=== PATIENT | male | born 1940 | race Two or more races ===

== ENCOUNTER 2023-01-25 15:28 | Inpatient (IN) | payer OTHER ==
[~2023-01-25] VITALS: Ht 152.4 cm; Wt 63.5 kg
[~2023-01-25 15:28] MED LIST: KEFLEX250 MG PO
[2023-01-25] MEDS ORDERED: SIMVASTATIN10 MG PO (16:26)
[2023-01-25] MEDS ORDERED: LEVOTHYROXINE50 MC1 PO (16:27)
[2023-01-25] MEDS ORDERED: JANUMET XR 1001 EACH PO (16:27)
[2023-01-25 17:35] LABS: HEMATOCRIT 26.9 % (39.0-48.0); MEAN CELL VOLUME 84.9 fL (80.0-100.00); MEAN CORPUSCULAR HGB CONC 34.2 g/dl (32.0-36.0); PLATELET COUNT 443 K/uL (150-450); RED BLOOD COUNT 3.17 M/uL (4.00-6.00); RED CELL DISTRIBUTION WIDTH 14.2 % (11.5-14.5)
[2023-01-25 17:38] LABS: HEMOGLOBIN 9.2 g/dL (13-16.00)
[2023-01-25 17:53] LABS: INR 0.98; PARTIAL THROMBOPLASTIN TIME 25.4 SECONDS (22.0-34.0); PROTHROMBIN TIME 10.3 SECONDS (9.0-11.5)
[2023-01-25 17:54] LABS: CALCIUM 9.2 mg/dL (8.5-10.1); CREATININE SERUM 1.22 mg/dL (0.70-1.30); GFR 56.59; POTASSIUM 5.12 mEq/L (3.5-5.1)
[2023-01-25 19:33] LABS: PH,URINE 5.5 (5.0-8.0); URINE APPEARANCE Clear; URINE BILIRRUBIN Negative (NEGATIVE); URINE BLOOD Small; URINE COLOR Yellow; URINE GLUCOSE Negative (NEGATIVE); URINE LEUKOCYTE Small; URINE NITRATE Negative; URINE PROTEIN Negative (NEGATIVE); URINE UROBILINOGEN 0.2 E.U./dl
[2023-01-25 19:36] LABS: URINE BACTERIA 147.4 uL (0.0-1933); URINE EPITHELIAL CELLS 6.4 uL (0.0-38.8); URINE RBC 67.6 uL (0.0-20.8); URINE WBC 40.9 uL (0.0-23.2)
[2023-01-25 22:42] LABS: ABG PH 7.394 (7.35-7.45); ABG PO2 100.4 mmHg (80-100); ABG pCO2 33.5 mmHg (35-45); BASE EXCESS -3.9 mmol/l; SaO2 97.6 %; allen test SATISFACTORY; o2 21 %; puncture site RADIAL LEFT
[2023-01-26 01:26] LABS: PARTIAL THROMBOPLASTIN TIME 29.5 SECONDS (22.0-34.0); PROTHROMBIN TIME 10.5 SECONDS (9.0-11.5)
[2023-01-27 07:54] LABS: CALCIUM 8.5 mg/dL (8.5-10.1); CREATININE SERUM 0.95 mg/dL (0.70-1.30); GFR 75.53; POTASSIUM 4.48 mEq/L (3.5-5.1)
[2023-01-27 08:12] LABS: HEMATOCRIT 24.5 % (39.0-48.0); MEAN CORPUSCULAR HGB CONC 34.1 g/dl (32.0-36.0); PLATELET COUNT 447 K/uL (150-450); RED BLOOD COUNT 2.88 M/uL (4.00-6.00); RED CELL DISTRIBUTION WIDTH 14.2 % (11.5-14.5)
[2023-01-27 08:16] LABS: HEMOGLOBIN 8.4 g/dL (13-16.00); MEAN CORPUSCULAR HEMOGLOBIN 29.1 pg (27.00-32.0)
[2023-01-27 15:30] LABS: CALCIUM 8.8 mg/dL (8.5-10.1); CHOL HDL RATIO 1.7 (0-5.0); CREATININE SERUM 0.93 mg/dL (0.70-1.30); GFR 77.41; POTASSIUM 4.32 mEq/L (3.5-5.1)
[2023-01-28 00:23] LABS: ob POSITIVE (NEGATIVE)
[2023-01-29 07:02] LABS: ALBUMIN 3.4 gm/dL (3.4-5.0); BILIRUBIN TOTAL 0.21 mg/dL (0.3-1.2); CALCIUM 8.3 mg/dL (8.5-10.1); CREATININE SERUM 0.91 mg/dL (0.70-1.30); GFR 79.37; GLOBULINA 2.9 G/DL (2.4-3.5); POTASSIUM 3.7 mEq/L (3.5-5.1); TOTAL PROTEIN 6.3 gm/dL (6.4-8.2)
[2023-01-29 07:33] LABS: HEMATOCRIT 23.7 % (39.0-48.0); MEAN CELL VOLUME 85.5 fL (80.0-100.00); MEAN CORPUSCULAR HEMOGLOBIN 29.6 pg (27.00-32.0); MEAN CORPUSCULAR HGB CONC 34.5 g/dl (32.0-36.0); PLATELET COUNT 468 K/uL (150-450); RED BLOOD COUNT 2.77 M/uL (4.00-6.00); RED CELL DISTRIBUTION WIDTH 14.1 % (11.5-14.5)
[2023-01-29 07:34] LABS: HEMOGLOBIN 8.2 g/dL (13-16.00)
[2023-01-29 10:54] LABS: FERRITIN 20.7 NG/ML (26-388)
[2023-01-30 10:08] LABS: CA 19-9 5 U/mL (0-35); free psa < 0.02 ng/mL; total psa < 0.1 ng/mL (0.0-4.0)
[2023-01-31 09:20] LABS: HEMATOCRIT 28.6 % (39.0-48.0); MEAN CORPUSCULAR HGB CONC 34.7 g/dl (32.0-36.0); PLATELET COUNT 346 K/uL (150-450); RED BLOOD COUNT 3.49 M/uL (4.00-6.00); RED CELL DISTRIBUTION WIDTH 16.1 % (11.5-14.5)
[2023-01-31 09:23] LABS: HEMOGLOBIN 9.9 g/dL (13-16.00); MEAN CORPUSCULAR HEMOGLOBIN 28.3 pg (27.00-32.0)
== END 2023-01-31 14:50 | disposition home or self-care (01) | DRG 392 ==
LOC: ER 15:28 → MEDI 21:50
PROVIDERS: General Practice; Internal Medicine Hematology & Oncology; ADMIT Specialist; ATTEND Specialist
PROC: BW21YZZ Computerized Tomography (CT Scan) of Abdomen and Pelvis using Other Contrast (ICD-10-PCS; 2023-01-25)
PROC: 0WBH3ZX Excision of Retroperitoneum, Percutaneous Approach, Diagnostic (ICD-10-PCS; principal; 2023-01-29)
PROC: 30233N1 Transfusion of Nonautologous Red Blood Cells into Peripheral Vein, Percutaneous Approach (ICD-10-PCS; 2023-01-29)
DX: K57.90 Diverticulosis of intestine, part unspecified, without perforation or abscess without bleeding (principal); N13.30 Unspecified hydronephrosis; N17.8 Other acute kidney failure; N39.0 Urinary tract infection, site not specified; K62.5 Hemorrhage of anus and rectum; E11.22 Type 2 diabetes mellitus with diabetic chronic kidney disease; I12.9 Hypertensive chronic kidney disease with stage 1 through stage 4 chronic kidney disease, or unspecified chronic kidney disease; N18.9 Chronic kidney disease, unspecified; D64.9 Anemia, unspecified; Z79.4 Long term (current) use of insulin; D72.828 Other elevated white blood cell count; R22.42 Localized swelling, mass and lump, left lower limb; Z85.46 Personal history of malignant neoplasm of prostate; K59.09 Other constipation

== ENCOUNTER 2023-03-20 12:00 | Emergency (ER) | payer OTHER ==
[~2023-03-20] VITALS: Ht 160 cm; Wt 61.2 kg
[~2023-03-20 12:00] MED LIST changes: +JANUMET XR 1001 EACH PO; +LEVOTHYROXINE50 MC1 PO; +SIMVASTATIN10 MG PO
[2023-03-20 16:14] LABS: HEMATOCRIT 31.3 % (39.0-48.0); HEMOGLOBIN 10.6 g/dL (13-16.00); MEAN CELL VOLUME 82.5 fL (80.0-100.00); PLATELET COUNT 393 K/uL (150-450); RED CELL DISTRIBUTION WIDTH 16.4 % (11.5-14.5)
[2023-03-20 16:33] LABS: CALCIUM 10.1 mg/dL (8.5-10.1); CREATININE SERUM 1.33 mg/dL (0.70-1.30); GFR 51.22; POTASSIUM 4.34 mEq/L (3.5-5.1)
[2023-03-20] MEDS ORDERED: ANUSOL-HC30 G2 TOP (17:42)
== END 2023-03-20 18:29 | disposition home or self-care (01) ==
LOC: ER
PROVIDERS: General Practice
DX: K62.5 Hemorrhage of anus and rectum (principal); E03.9 Hypothyroidism, unspecified; M19.90 Unspecified osteoarthritis, unspecified site; E03.8 Other specified hypothyroidism; I10 Essential (primary) hypertension; K64.8 Other hemorrhoids; F41.8 Other specified anxiety disorders

== ENCOUNTER 2023-04-12 06:00 | Day surgery (SDC) | payer OTHER ==
[2023-04-05 12:18] LABS: HEMATOCRIT 31.3 % (39.0-48.0); MEAN CORPUSCULAR HEMOGLOBIN 27.4 pg (27.00-32.0); MEAN CORPUSCULAR HGB CONC 33.8 g/dl (32.0-36.0); PLATELET COUNT 488 K/uL (150-450); RED BLOOD COUNT 3.86 M/uL (4.00-6.00); RED CELL DISTRIBUTION WIDTH 15.9 % (11.5-14.5)
[2023-04-05 12:19] LABS: HEMOGLOBIN 10.6 g/dL (13-16.00)
[2023-04-05 12:29] LABS: URINE APPEARANCE Clear; URINE BILIRRUBIN Negative (NEGATIVE); URINE BLOOD Negative; URINE COLOR Yellow; URINE GLUCOSE Negative (NEGATIVE); URINE LEUKOCYTE Negative; URINE NITRATE Negative; URINE PROTEIN Trace (NEGATIVE); URINE UROBILINOGEN 0.2 E.U./dl
[2023-04-05 12:30] LABS: URINE BACTERIA 6.2 uL (0.0-1933); URINE EPITHELIAL CELLS 1.5 uL (0.0-38.8); URINE WBC 4.4 uL (0.0-23.2)
[2023-04-05 12:33] LABS: URINE RBC 0.5 uL (0.0-20.8)
[2023-04-05 12:46] LABS: INR < 0.93; PARTIAL THROMBOPLASTIN TIME 31.4 SECONDS (22.0-34.0); PROTHROMBIN TIME 9.8 SECONDS (9.0-11.5)
[2023-04-05 12:50] LABS: CALCIUM 9.7 mg/dL (8.5-10.1); CREATININE SERUM 1.22 mg/dL (0.70-1.30); GFR 56.59; POTASSIUM 4.59 mEq/L (3.5-5.1)
[~2023-04-12] VITALS: Ht 160 cm; Wt 63.0 kg
[~2023-04-12 06:00] MED LIST changes: +ANUSOL-HC30 G2 TOP; +ARICEPT5 MG PO; +CHILDREN'S ASPI81 MG PO; +MULTIPLE VITAM1 EAC2 PO; +OMEGA-31000 MG PO
== END 2023-04-12 19:05 | disposition home or self-care (01) ==
LOC: CIR.AMB 06:00
PROVIDERS: ATTEND Urology
DX: C67.9 Malignant neoplasm of bladder, unspecified (principal); N35.919 Unspecified urethral stricture, male, unspecified site

== ENCOUNTER 2023-09-16 13:43 | Inpatient (IN) | payer OTHER ==
[~2023-09-16] VITALS: Ht 170.2 cm; Wt 55.8 kg
--- NOTE | 2023-09-16 14:03 | NUR ---
SE RECIBE PTE ALERTA EN PERSONA DESDE AMBULANCIA, HIPOACTIVO Y CON DEBILIDAD. PTE DE LA DRA.HILDA CARRILLOA. SE MIDEN S/V, SE REALIZA EKG Y SE PRESENTA A . SE COLOCA A PTE EN MONITOR CARDIACO Y OXIMETRIA DE PULSO CONTINUIA.
[2023-09-16] MEDS ORDERED: 0.9 % SODIUM CHLORIDE 1,000 ML IV SCH ×3 (14:45→20:00)
--- NOTE | 2023-09-16 16:03 | NUR ---
SE ORIENTA SOBRE TX MEDICO, REFIERE ENTENDER. SE REALIZAN MUESTRAS DE LABORATORIO BAJO MEDIDAS ASEPTICAS. SE ADMINISTRA MEDICAMENTO STEVEN ORDEN MEDICA. PENDIENTE RE-EVALUACION MEDICA.
[2023-09-16 16:15] LABS: HEMATOCRIT 24.9 % (39.0-48.0); MEAN CELL VOLUME 80.7 fL (80.0-100.00); MEAN CORPUSCULAR HGB CONC 35.3 g/dl (32.0-36.0); PLATELET COUNT 434 K/uL (150-450); RED BLOOD COUNT 3.08 M/uL (4.00-6.00)
[2023-09-16 16:20] LABS: ALBUMIN 2.2 gm/dL (3.4-5.0); BILIRUBIN TOTAL 0.52 mg/dL (0.3-1.2); BILIRUBIN,CONJUGATED 0.34 mg/dL (0.0-0.2); BILIRUBIN,UNCONJUGATED 0.18 mg/dL (0.0-0.6); CALCIUM 7.8 mg/dL (8.5-10.1); CREATININE SERUM 3.29 mg/dL (0.70-1.30); GFR 17.97; GLOBULINA 3.5 G/DL (2.4-3.5); POTASSIUM 4.77 mEq/L (3.5-5.1); TOTAL PROTEIN 5.7 gm/dL (6.4-8.2); TSH 0.951 uIU/mL (0.358-3.74)
[2023-09-16 16:24] LABS: PH,URINE 7.5 (5.0-8.0); URINE APPEARANCE Turbid; URINE BILIRRUBIN Negative (NEGATIVE); URINE BLOOD Large; URINE COLOR Yellow; URINE GLUCOSE Negative (NEGATIVE); URINE LEUKOCYTE Large; URINE NITRATE Negative; URINE UROBILINOGEN 0.2 E.U./dl
[2023-09-16 16:28] LABS: URINE EPITHELIAL CELLS 7.5 uL (0.0-38.8); URINE RBC 683.4 uL (0.0-20.8)
[2023-09-16 17:01] LABS: MEAN CORPUSCULAR HEMOGLOBIN 28.5 pg (27.00-32.0); RED CELL DISTRIBUTION WIDTH 22.2 % (11.5-14.5)
[2023-09-16 17:02] LABS: HEMOGLOBIN 8.8 g/dL (13-16.00)
[2023-09-16 17:11] LABS: URINE BACTERIA > 9821.5 uL (0.0-1933); URINE PROTEIN 300 (NEGATIVE); URINE WBC > 5548.3 uL (0.0-23.2)
[2023-09-16] MEDS ORDERED: CEFTRIAXONE SODIUM 1,000 MG VIAL IV ONE (19:00)
[2023-09-16] MEDS ORDERED: ONDANSETRON HCL 4 MG in 0.9 % SODIUM CHLORIDE 50 ML IV PRN (19:45)
[2023-09-16] MEDS ORDERED: ACETAMINOPHEN 500 MG GEL..CAP PO PRN (19:45)
[2023-09-16] MEDS ORDERED: FAMOTIDINE/PF 20 MG in 0.9 % SODIUM CHLORIDE 8 ML IV PUSH SCH (19:45)
[2023-09-16 23:27] LABS: MAGNESIUM 1.7 mg/dL (1.8-2.4); PHOSPHOROUS 3.7 mg/dL (2.5-4.9)
[2023-09-16 23:28] LABS: INR 1.07; PROTHROMBIN TIME 11.2 SECONDS (9.0-11.5)
[2023-09-16 23:52] LABS: PARTIAL THROMBOPLASTIN TIME 40.2 SECONDS (22.0-34.0)
[2023-09-17 01:26] LABS: ob POSITIVE (NEGATIVE)
[2023-09-17] MEDS ORDERED: LEVOTHYROXINE SODIUM 50 MCG TABLET PO SCH (06:00)
[2023-09-17] MEDS ORDERED: MAGNESIUM SULFATE IN WATER 2 GM/50 ML PIGGYBAG IV NR (06:45)
[2023-09-17] MEDS ORDERED: IRON FUM,PS/FOLIC/BCOMP,C NO.9 1 CAP CAPSULE PO SCH (09:00)
[2023-09-17] MEDS ORDERED: VITAMIN B COMPLEX/LYSINE 1 ML ML PO SCH (09:00)
[2023-09-17] MEDS ORDERED: CEFTRIAXONE SODIUM 2,000 MG in 0.9 % SODIUM CHLORIDE 100 ML IV SCH (09:00)
[2023-09-17] MEDS ORDERED: SIMVASTATIN 10 MG TABLET PO SCH (17:00)
[2023-09-17] MEDS ORDERED: SOD FERRIC GLUC COMPLX/SUCROSE 62.5 MG/5 ML AMPUL IV SCH (17:00)
[2023-09-17] MEDS ORDERED: VITAMIN B COMPLEX 1 EACH PO SCH (17:00)
[2023-09-17] MEDS ORDERED: DONEPEZIL HCL 10 MG TABLET PO SCH (17:00)
[2023-09-17] MEDS ORDERED: Cyanocobalamin/Mecobalamin 1 TAB.SL SL SCH (17:00)
[2023-09-18] MEDS ORDERED: ZINC SULFATE 220 MG CAPSULE PO SCH (12:00)
[2023-09-18] MEDS ORDERED: CHOLECALCIFEROL (VITAMIN D3) 5,000 UNITS TABLET PO SCH (12:00)
[2023-09-18] MEDS ORDERED: ASCORBIC ACID 500 MG TABLET PO SCH (17:00)
[2023-09-18 17:43] LABS: HEMATOCRIT 33.5 % (39.0-48.0); HEMOGLOBIN 11.5 g/dL (13-16.00); MEAN CORPUSCULAR HEMOGLOBIN 28.9 pg (27.00-32.0); MEAN CORPUSCULAR HGB CONC 34.4 g/dl (32.0-36.0); PLATELET COUNT 345 K/uL (150-450); RED BLOOD COUNT 3.99 M/uL (4.00-6.00); RED CELL DISTRIBUTION WIDTH 20.3 % (11.5-14.5)
[2023-09-18] MEDS ORDERED: MELATONIN 5 MG TABLET PO SCH (21:00)
[2023-09-19 07:16] LABS: URINE APPEARANCE Turbid; URINE BILIRRUBIN Negative (NEGATIVE); URINE BLOOD Large; URINE COLOR Yellow; URINE GLUCOSE Negative (NEGATIVE); URINE LEUKOCYTE Large; URINE NITRATE Negative; URINE PROTEIN 30 (NEGATIVE); URINE UROBILINOGEN 0.2 E.U./dl
[2023-09-19 07:19] LABS: URINE BACTERIA 283.4 uL (0.0-1933); URINE EPITHELIAL CELLS 5.2 uL (0.0-38.8); URINE RBC 1704.9 uL (0.0-20.8); URINE WBC 5210.9 uL (0.0-23.2)
[2023-09-19] MEDS ORDERED: SODIUM CL 0.9% 100 ML IV.SOLN IV ONE (08:46)
[2023-09-19 11:06] LABS: D DIMER 5.29 MG/L; PARTIAL THROMBOPLASTIN TIME 37.2 SECONDS (22.0-34.0)
[2023-09-19 11:12] LABS: BILIRUBIN TOTAL 0.45 mg/dL (0.3-1.2); BILIRUBIN,CONJUGATED 0.27 mg/dL (0.0-0.2); BILIRUBIN,UNCONJUGATED 0.18 mg/dL (0.0-0.6); CALCIUM 7.9 mg/dL (8.5-10.1); CREATININE SERUM 1.46 mg/dL (0.70-1.30); GFR 45.89; GLOBULINA 3.2 G/DL (2.4-3.5); MAGNESIUM 1.5 mg/dL (1.8-2.4); POTASSIUM 4.48 mEq/L (3.5-5.1); TOTAL PROTEIN 5.2 gm/dL (6.4-8.2)
[2023-09-19 11:13] LABS: C-REACTIVE PROTEIN 10.4 MG/DL (0.00-0.29); FERRITIN 1510.9 NG/ML (26-388)
[2023-09-19] MEDS ORDERED: MULTIVIT INFUSN,ADULT 4,VIT K 10 ML VIAL IV SCH (12:00)
[2023-09-19 15:25] LABS: HEMATOCRIT 31.4 % (39.0-48.0); HEMOGLOBIN 10.9 g/dL (13-16.00); MEAN CELL VOLUME 83.9 fL (80.0-100.00); MEAN CORPUSCULAR HGB CONC 34.6 g/dl (32.0-36.0); PLATELET COUNT 323 K/uL (150-450); RED BLOOD COUNT 3.74 M/uL (4.00-6.00); RED CELL DISTRIBUTION WIDTH 19.8 % (11.5-14.5)
[2023-09-20] MEDS ORDERED: NITROGLYCERIN IN 5 % DEXTROSE 250 ML IV SCH (20:15)
[2023-09-20] MEDS ORDERED: NITROGLYCERIN IN 5 % DEXTROSE 50 MG/250 ML BOTTLE IV ONE ×2 (20:30→21:07)
[2023-09-20] MEDS ORDERED: SODIUM BICARBONATE 1 MEQ/ML DISP.SYRIN 50ML IV STA (21:59)
[2023-09-20] MEDS ORDERED: SODIUM BICARBONATE 50MEQ/50ML VIAL IV ONE (22:06)
[2023-09-20] MEDS ORDERED: PROPOFOL 10,000 MCG/ML VIAL IV ONE (22:31)
[2023-09-20 22:47] LABS: ABG PH 7.142 (7.35-7.45); ABG PO2 64.1 mmHg (80-100); ABG pCO2 29.5 mmHg (35-45); BASE EXCESS -17.8 mmol/l; BICARBONATE 9.9 mmol/l (23-25); SaO2 81.4 %; Tco2 10.8 mmol/l; allen test SATISFACTORY; o2 100 %; puncture site BRADIAL LEFT
[2023-09-20] MEDS ORDERED: FUROsemide 20 MG/2 ML VIAL IV SCH (23:28)
[2023-09-20] MEDS ORDERED: MIDAZOLAM HCL 50 MG/10 ML VIAL IV SCH (23:30)
[2023-09-20] MEDS ORDERED: DEXAMETHASONE SODIUM PHOSPHATE 4 MG/ML VIAL IV SCH (23:38)
[2023-09-20] MEDS ORDERED: ENOXAPARIN SODIUM 40 MG/0.4 ML SYRINGE SUBCUTANEO SCH (23:39)
[2023-09-20] MEDS ORDERED: REMDESIVIR 100 MG VIAL IV SCH (23:40)
[2023-09-20] MEDS ORDERED: 0.9 % SODIUM CHLORIDE 1,000 ML IV SCH (23:45)
[2023-09-21] MEDS ORDERED: FentaNYL CITRATE/PF 50MCG/ML 2ML VIAL IJ ONE (00:15)
[2023-09-21] MEDS ORDERED: MIDAZOLAM HCL 2 MG/2 ML VIAL IV PUSH ONE (00:15)
[2023-09-21] MEDS ORDERED: PROPOFOL 10,000 MCG/ML VIAL IV ONE (00:15)
[2023-09-21] MEDS ORDERED: CHLORHEXIDINE GLUCONATE 15ML BRUSH KIT MM SCH (01:00)
[2023-09-21 07:53] LABS: ALBUMIN 1.7 gm/dL (3.4-5.0); BILIRUBIN TOTAL 0.23 mg/dL (0.3-1.2); C-REACTIVE PROTEIN 10.6 MG/DL (0.00-0.29); CALCIUM 7.7 mg/dL (8.5-10.1); CREATININE SERUM 1.45 mg/dL (0.70-1.30); GFR 46.25; GLOBULINA 2.7 G/DL (2.4-3.5); MAGNESIUM 1.5 mg/dL (1.8-2.4); PHOSPHOROUS 3.3 mg/dL (2.5-4.9); POTASSIUM 3.96 mEq/L (3.5-5.1); TOTAL PROTEIN 4.4 gm/dL (6.4-8.2)
[2023-09-21 08:26] LABS: HEMOGLOBIN 10.8 g/dL (13-16.00); MEAN CELL VOLUME 82.4 fL (80.0-100.00); MEAN CORPUSCULAR HEMOGLOBIN 28.6 pg (27.00-32.0); MEAN CORPUSCULAR HGB CONC 34.7 g/dl (32.0-36.0); PLATELET COUNT 260 K/uL (150-450); RED BLOOD COUNT 3.76 M/uL (4.00-6.00); RED CELL DISTRIBUTION WIDTH 20.4 % (11.5-14.5)
[2023-09-21] MEDS ORDERED: CARBOXYMETHYLCELLULOSE SODIUM 1 EACH DROPERETTE OP SCH (09:00)
[2023-09-21 10:45] LABS: ABG PH 7.385 (7.35-7.45); ABG PO2 230.5 mmHg (80-100); ABG pCO2 31.2 mmHg (35-45); BASE EXCESS -5.5 mmol/l; BICARBONATE 18.3 mmol/l (23-25); SaO2 99.8 %; Tco2 19.2 mmol/l; o2 100 %
[2023-09-21 10:46] LABS: allen test SATISFACTORY; puncture site RADIAL RIGHT
[2023-09-21] MEDS ORDERED: MAGNESIUM SULFATE/D5W 100 ML IV NR (14:00)
[2023-09-21] MEDS ORDERED: DONEPEZIL HCL 10 MG TABLET PO SCH (17:00)
[2023-09-22] MEDS ORDERED: NOREPINEPHRINE BITARTRATE 4 MG in DEXTROSE 5 % IN WATER 250 ML IV SCH (03:15)
[2023-09-22] MEDS ORDERED: ENOXAPARIN SODIUM 30 MG/0.3 ML SYRINGE SUBCUTANEO SCH (09:00)
[2023-09-22 09:20] LABS: ABG PH 7.395 (7.35-7.45); ABG PO2 101.9 mmHg (80-100); ABG pCO2 25.5 mmHg (35-45); BASE EXCESS -7.7 mmol/l; BICARBONATE 15.2 mmol/l (23-25); SaO2 97.6 %
[2023-09-22 09:21] LABS: allen test SATISFACTORY; o2 40 %; puncture site RADIAL RIGHT
[2023-09-22 10:29] LABS: HEMATOCRIT 29.3 % (39.0-48.0); HEMOGLOBIN 10.2 g/dL (13-16.00); MEAN CELL VOLUME 82.2 fL (80.0-100.00); MEAN CORPUSCULAR HEMOGLOBIN 28.7 pg (27.00-32.0); MEAN CORPUSCULAR HGB CONC 34.9 g/dl (32.0-36.0); PLATELET COUNT 250 K/uL (150-450); RED BLOOD COUNT 3.57 M/uL (4.00-6.00); RED CELL DISTRIBUTION WIDTH 20.9 % (11.5-14.5)
[2023-09-22 11:04] LABS: ALBUMIN 1.7 gm/dL (3.4-5.0); BILIRUBIN TOTAL 0.27 mg/dL (0.3-1.2); CALCIUM 7.3 mg/dL (8.5-10.1); CREATININE SERUM 1.57 mg/dL (0.70-1.30); GFR 42.2; GLOBULINA 2.6 G/DL (2.4-3.5); MAGNESIUM 1.7 mg/dL (1.8-2.4); PHOSPHOROUS 3.3 mg/dL (2.5-4.9); POTASSIUM 4.15 mEq/L (3.5-5.1); TOTAL PROTEIN 4.3 gm/dL (6.4-8.2)
[2023-09-22] MEDS ORDERED: AZITHROMYCIN 500 MG in DEXTROSE 5 % IN WATER 250 ML IV SCH (11:19)
[2023-09-22] MEDS ORDERED: VANCOMYCIN HCL 1,000 MG in 0.9 % SODIUM CHLORIDE 250 ML IV NR (11:45)
[2023-09-23 08:40] LABS: ABG PH 7.415 (7.35-7.45); ABG PO2 88.7 mmHg (80-100); ABG pCO2 23.7 mmHg (35-45); SaO2 96.7 %
[2023-09-23 08:41] LABS: BASE EXCESS -7.5 mmol/l; BICARBONATE 14.9 mmol/l (23-25); Tco2 15.6 mmol/l; allen test SATISFACTORY; o2 30 %; puncture site RADIAL RIGHT
[2023-09-23] MEDS ORDERED: FAMOTIDINE/PF 20 MG/2 ML VIAL IV PUSH SCH (09:14)
[2023-09-23] MEDS ORDERED: CARBOXYMETHYLCELLULOSE SODIUM 1 EACH DROPERETTE OP SCH (09:15)
[2023-09-23] MEDS ORDERED: REMDESIVIR 100 MG VIAL IV NR (10:33)
[2023-09-23 11:00] LABS: HEMATOCRIT 30.4 % (39.0-48.0); HEMOGLOBIN 10.4 g/dL (13-16.00); MEAN CELL VOLUME 83.9 fL (80.0-100.00); MEAN CORPUSCULAR HEMOGLOBIN 28.9 pg (27.00-32.0); MEAN CORPUSCULAR HGB CONC 34.4 g/dl (32.0-36.0); PLATELET COUNT 206 K/uL (150-450); RED BLOOD COUNT 3.62 M/uL (4.00-6.00); RED CELL DISTRIBUTION WIDTH 21.1 % (11.5-14.5)
[2023-09-23 11:16] LABS: ALBUMIN 1.7 gm/dL (3.4-5.0); BILIRUBIN TOTAL 0.2 mg/dL (0.3-1.2); CALCIUM 7.7 mg/dL (8.5-10.1); CREATININE SERUM 1.58 mg/dL (0.70-1.30); GFR 41.89; GLOBULINA 3.1 G/DL (2.4-3.5); MAGNESIUM 1.6 mg/dL (1.8-2.4); PHOSPHOROUS 3.3 mg/dL (2.5-4.9); POTASSIUM 3.84 mEq/L (3.5-5.1); TOTAL PROTEIN 4.8 gm/dL (6.4-8.2)
[2023-09-23] MEDS ORDERED: MEROPENEM 500 MG/VIAL VIAL IV SCH (13:00)
[2023-09-23 15:28] LABS: URINE APPEARANCE Turbid; URINE BILIRRUBIN Negative (NEGATIVE); URINE BLOOD Small; URINE COLOR Red; URINE GLUCOSE Negative (NEGATIVE); URINE LEUKOCYTE Large; URINE NITRATE Positive; URINE PROTEIN 30 (NEGATIVE); URINE UROBILINOGEN 0.2 E.U./dl
[2023-09-23 15:33] LABS: URINE BACTERIA 1044.5 uL (0.0-1933)
[2023-09-23 16:01] LABS: URINE EPITHELIAL CELLS > 201.7 uL (0.0-38.8); URINE RBC > 10558.9 uL (0.0-20.8); URINE WBC > 5548.3 uL (0.0-23.2)
[2023-09-23] MEDS ORDERED: VANCOMYCIN HCL 5 MG/ML REDILUIDO IV SCH (17:00)
[2023-09-24 08:10] LABS: ABG PH 7.301 (7.35-7.45); ABG PO2 92.1 mmHg (80-100); BASE EXCESS -11.6 mmol/l; SaO2 95.7 %; Tco2 13.9 mmol/l
[2023-09-24 08:11] LABS: allen test SATISFACTORY; o2 50 %; puncture site RADIAL RIGHT
[2023-09-24] MEDS ORDERED: FAMOTIDINE/PF 20 MG/2 ML VIAL IV PUSH SCH (09:00)
[2023-09-24 09:12] LABS: ALBUMIN 1.8 gm/dL (3.4-5.0); BILIRUBIN TOTAL 0.36 mg/dL (0.3-1.2); C-REACTIVE PROTEIN 7.18 MG/DL (0.00-0.29); CALCIUM 7.9 mg/dL (8.5-10.1); CREATININE SERUM 1.8 mg/dL (0.70-1.30); GFR 36.04; MAGNESIUM 1.7 mg/dL (1.8-2.4); PHOSPHOROUS 4.8 mg/dL (2.5-4.9); POTASSIUM 4.61 mEq/L (3.5-5.1); TOTAL PROTEIN 4.8 gm/dL (6.4-8.2)
[2023-09-24 10:28] LABS: FERRITIN 21209.4 NG/ML (26-388)
[2023-09-24] MEDS ORDERED: REMDESIVIR 100 MG VIAL IV SCH (14:00)
[2023-09-24] MEDS ORDERED: PANTOPRAZOLE SODIUM 80 MG in 0.9 % SODIUM CHLORIDE 100 ML IV SCH (22:15)
[2023-09-25 08:36] LABS: ABG PH 7.303 (7.35-7.45); ABG PO2 92.7 mmHg (80-100); ABG pCO2 28.8 mmHg (35-45); BASE EXCESS -10.8 mmol/l; SaO2 95.8 %; Tco2 14.8 mmol/l
[2023-09-25 08:37] LABS: allen test SATISFACTORY; o2 40 %; puncture site RADIAL RIGHT
[2023-09-25] MEDS ORDERED: INSULIN LISPRO 1,000 UNIT/10 ML UNITS SUBCUTANEO PRN (10:15)
[2023-09-25] MEDS ORDERED: DEXTROSE 50 % IN WATER 0.5 G/ML VIAL IV PRN (10:15)
[2023-09-26 07:48] LABS: HEMATOCRIT 32.5 % (39.0-48.0); HEMOGLOBIN 11.2 g/dL (13-16.00); MEAN CELL VOLUME 85.1 fL (80.0-100.00); MEAN CORPUSCULAR HEMOGLOBIN 29.3 pg (27.00-32.0); MEAN CORPUSCULAR HGB CONC 34.5 g/dl (32.0-36.0); PLATELET COUNT 141 K/uL (150-450); RED BLOOD COUNT 3.82 M/uL (4.00-6.00); RED CELL DISTRIBUTION WIDTH 21.5 % (11.5-14.5)
[2023-09-26 07:59] LABS: ALBUMIN 1.8 gm/dL (3.4-5.0); BILIRUBIN TOTAL 0.3 mg/dL (0.3-1.2); CALCIUM 7.8 mg/dL (8.5-10.1); CREATININE SERUM 2.02 mg/dL (0.70-1.30); GFR 31.55; GLOBULINA 2.6 G/DL (2.4-3.5); PHOSPHOROUS 4.3 mg/dL (2.5-4.9); POTASSIUM 4.33 mEq/L (3.5-5.1); TOTAL PROTEIN 4.4 gm/dL (6.4-8.2)
[2023-09-26 08:03] LABS: C-REACTIVE PROTEIN 6.63 MG/DL (0.00-0.29)
[2023-09-26 11:01] LABS: ABG PH 7.315 (7.35-7.45); ABG PO2 101.8 mmHg (80-100); ABG pCO2 31.3 mmHg (35-45); BASE EXCESS -9.2 mmol/l; SaO2 96.9 %
[2023-09-26 11:02] LABS: BICARBONATE 15.6 mmol/l (23-25); Tco2 16.6 mmol/l; allen test SATISFACTORY; o2 40 %; puncture site RADIAL RIGHT
[2023-09-26] MEDS ORDERED: ANIDULAFUNGIN 100 MG VIAL IV NR (16:45)
[2023-09-27 06:34] LABS: HEMATOCRIT 31.5 % (39.0-48.0); HEMOGLOBIN 10.9 g/dL (13-16.00); MEAN CELL VOLUME 85.1 fL (80.0-100.00); MEAN CORPUSCULAR HEMOGLOBIN 29.4 pg (27.00-32.0); MEAN CORPUSCULAR HGB CONC 34.5 g/dl (32.0-36.0); RED BLOOD COUNT 3.71 M/uL (4.00-6.00); RED CELL DISTRIBUTION WIDTH 21.5 % (11.5-14.5)
[2023-09-27 06:39] LABS: PLATELET COUNT 123 K/uL (150-450)
[2023-09-27 06:54] LABS: ALBUMIN 1.8 gm/dL (3.4-5.0); BILIRUBIN TOTAL 0.38 mg/dL (0.3-1.2); CALCIUM 8.1 mg/dL (8.5-10.1); GFR 33.45; GLOBULINA 2.5 G/DL (2.4-3.5); PHOSPHOROUS 4.3 mg/dL (2.5-4.9); POTASSIUM 4.44 mEq/L (3.5-5.1); TOTAL PROTEIN 4.3 gm/dL (6.4-8.2)
[2023-09-27 06:55] LABS: CREATININE SERUM 1.92 mg/dL (0.70-1.30)
[2023-09-27 08:37] LABS: ABG PH 7.312 (7.35-7.45); ABG PO2 94.2 mmHg (80-100); ABG pCO2 27.6 mmHg (35-45); BASE EXCESS -10.8 mmol/l; BICARBONATE 13.7 mmol/l (23-25); SaO2 96.1 %; Tco2 14.5 mmol/l
[2023-09-27 08:38] LABS: allen test SATISFACTORY; o2 40 %; puncture site RADIAL RIGHT
[2023-09-27] MEDS ORDERED: ANIDULAFUNGIN 100 MG VIAL IV SCH (12:00)
[2023-09-28 08:21] LABS: MEAN CELL VOLUME 84.9 fL (80.0-100.00); MEAN CORPUSCULAR HEMOGLOBIN 29.3 pg (27.00-32.0); MEAN CORPUSCULAR HGB CONC 34.5 g/dl (32.0-36.0); RED BLOOD COUNT 3.77 M/uL (4.00-6.00); RED CELL DISTRIBUTION WIDTH 22.4 % (11.5-14.5)
[2023-09-28 08:29] LABS: PLATELET COUNT 129 K/uL (150-450)
[2023-09-28 08:54] LABS: ABG PH 7.309 (7.35-7.45); ABG pCO2 28.8 mmHg (35-45)
[2023-09-28 08:55] LABS: ABG PO2 58.8 mmHg (80-100); BASE EXCESS -10.5 mmol/l; BICARBONATE 14.2 mmol/l (23-25); SaO2 86.1 %; allen test SATISFACTORY; o2 40 %; puncture site RADIAL RIGHT
[2023-09-29 06:46] LABS: ALBUMIN 1.8 gm/dL (3.4-5.0); BILIRUBIN TOTAL 0.42 mg/dL (0.3-1.2); CALCIUM 7.8 mg/dL (8.5-10.1); CREATININE SERUM 2.19 mg/dL (0.70-1.30); GFR 28.74; GLOBULINA 2.2 G/DL (2.4-3.5); POTASSIUM 4.52 mEq/L (3.5-5.1)
[2023-09-29 14:15] LABS: ABG PH 7.323 (7.35-7.45); ABG pCO2 27.3 mmHg (35-45)
[2023-09-29 14:16] LABS: ABG PO2 37.2 mmHg (80-100); BASE EXCESS -10.4 mmol/l; BICARBONATE 13.8 mmol/l (23-25); SaO2 63.6 %; Tco2 14.7 mmol/l
[2023-09-29 14:17] LABS: allen test SATISFACTORY; o2 40 %; puncture site RADIAL LEFT
[2023-09-30 07:21] LABS: HEMATOCRIT 30.6 % (39.0-48.0); HEMOGLOBIN 10.3 g/dL (13-16.00); MEAN CELL VOLUME 86.7 fL (80.0-100.00); MEAN CORPUSCULAR HEMOGLOBIN 29.3 pg (27.00-32.0); MEAN CORPUSCULAR HGB CONC 33.8 g/dl (32.0-36.0); RED BLOOD COUNT 3.53 M/uL (4.00-6.00); RED CELL DISTRIBUTION WIDTH 21.8 % (11.5-14.5)
[2023-09-30 07:24] LABS: BILIRUBIN TOTAL 0.57 mg/dL (0.3-1.2); CREATININE SERUM 2.23 mg/dL (0.70-1.30); GFR 28.15; GLOBULINA 2.4 G/DL (2.4-3.5); POTASSIUM 5.08 mEq/L (3.5-5.1); TOTAL PROTEIN 4.4 gm/dL (6.4-8.2)
[2023-09-30 07:32] LABS: PLATELET COUNT 106 K/uL (150-450)
[2023-09-30 08:25] LABS: ABG PH 7.218 (7.35-7.45); ABG PO2 73.1 mmHg (80-100); ABG pCO2 27.5 mmHg (35-45); BASE EXCESS -15.1 mmol/l; BICARBONATE 10.9 mmol/l (23-25); SaO2 89.3 %; Tco2 11.8 mmol/l
[2023-09-30 08:26] LABS: allen test SATISFACTORY; o2 40 %; puncture site RADIAL RIGHT
[2023-09-30] MEDS ORDERED: SODIUM BICARBONATE 100 MEQ in SODIUM CHLORIDE 0.45 % 1,000 ML IV SCH (11:11)
[2023-09-30] MEDS ORDERED: PANTOPRAZOLE SODIUM 40 MG/VIAL VIAL IV PUSH SCH (12:00)
[2023-10-01 11:22] LABS: ABG PH 7.316 (7.35-7.45); ABG PO2 91.2 mmHg (80-100); ABG pCO2 30.6 mmHg (35-45); BASE EXCESS -9.4 mmol/l; BICARBONATE 15.3 mmol/l (23-25); SaO2 95.8 %; Tco2 16.2 mmol/l; o2 50 %
[2023-10-01 11:23] LABS: allen test SATISFACTORY; puncture site RADIAL RIGHT
[2023-10-01] MEDS ORDERED: SODIUM BICARBONATE 50MEQ/50ML VIAL IV NR (12:15)
[2023-10-01 15:19] LABS: CALCIUM 7.8 mg/dL (8.5-10.1); CREATININE SERUM 2.03 mg/dL (0.70-1.30); GFR 31.37; POTASSIUM 4.85 mEq/L (3.5-5.1)
[2023-10-01] MEDS ORDERED: FF) Voriconazole 200 MG VIAL IV SCH (21:00)
[2023-10-01] MEDS ORDERED: VORICONAZOLE IV SCH (21:00)
[2023-10-01] MEDS ORDERED: MEROPENEM 500 MG/VIAL VIAL IV SCH (21:00)
[2023-10-02 07:11] LABS: ALBUMIN 1.8 gm/dL (3.4-5.0); BILIRUBIN TOTAL 0.53 mg/dL (0.3-1.2); CALCIUM 7.7 mg/dL (8.5-10.1); CREATININE SERUM 1.92 mg/dL (0.70-1.30); GFR 33.45; GLOBULINA 2.2 G/DL (2.4-3.5); POTASSIUM 4.69 mEq/L (3.5-5.1)
[2023-10-02 08:31] LABS: ABG PH 7.472 (7.35-7.45); ABG PO2 182.8 mmHg (80-100); ABG pCO2 28.5 mmHg (35-45); BASE EXCESS -1.8 mmol/l; BICARBONATE 20.4 mmol/l (23-25); SaO2 99.7 %; Tco2 21.2 mmol/l
[2023-10-02 08:47] LABS: allen test SATISFACTORY; o2 50 %; puncture site RADIAL RIGHT
[2023-10-02] MEDS ORDERED: LEVOTHYROXINE SODIUM 100 MCG/VIAL VIAL IV SCH (09:00)
[2023-10-02] MEDS ORDERED: SOD FERRIC GLUC COMPLX/SUCROSE 62.5 MG/5 ML AMPUL IV SCH (09:00)
[2023-10-02] MEDS ORDERED: 0.9 % SODIUM CHLORIDE 1,000 ML IV SCH (11:45)
[2023-10-02] MEDS ORDERED: PANTOPRAZOLE SODIUM 80 MG in 0.9 % SODIUM CHLORIDE 100 ML IV SCH (12:00)
[2023-10-02 14:46] LABS: HEMATOCRIT 26.7 % (39.0-48.0); HEMOGLOBIN 9.2 g/dL (13-16.00); MEAN CELL VOLUME 84.8 fL (80.0-100.00); MEAN CORPUSCULAR HEMOGLOBIN 29.2 pg (27.00-32.0); MEAN CORPUSCULAR HGB CONC 34.5 g/dl (32.0-36.0); RED BLOOD COUNT 3.15 M/uL (4.00-6.00)
[2023-10-02 15:02] LABS: PLATELET COUNT 60 K/uL (150-450)
[2023-10-02] MEDS ORDERED: FF) Voriconazole 200 MG VIAL IV SCH (21:00)
[2023-10-03 07:15] LABS: ALBUMIN 1.8 gm/dL (3.4-5.0); BILIRUBIN TOTAL 0.47 mg/dL (0.3-1.2); CALCIUM 7.9 mg/dL (8.5-10.1); CREATININE SERUM 1.76 mg/dL (0.70-1.30); GFR 36.99; GLOBULINA 2.1 G/DL (2.4-3.5); POTASSIUM 4.69 mEq/L (3.5-5.1); TOTAL PROTEIN 3.9 gm/dL (6.4-8.2)
[2023-10-03 07:18] LABS: HEMATOCRIT 26.1 % (39.0-48.0); HEMOGLOBIN 9.2 g/dL (13-16.00); MEAN CELL VOLUME 84.7 fL (80.0-100.00); MEAN CORPUSCULAR HEMOGLOBIN 29.8 pg (27.00-32.0); MEAN CORPUSCULAR HGB CONC 35.1 g/dl (32.0-36.0); RED BLOOD COUNT 3.08 M/uL (4.00-6.00); RED CELL DISTRIBUTION WIDTH 21.8 % (11.5-14.5)
[2023-10-03 07:27] LABS: PLATELET COUNT 56 K/uL (150-450)
[2023-10-03 08:42] LABS: ABG PH 7.419 (7.35-7.45); ABG PO2 108.2 mmHg (80-100); ABG pCO2 29.2 mmHg (35-45); BASE EXCESS -4.5 mmol/l; BICARBONATE 18.5 mmol/l (23-25); SaO2 98.2 %; Tco2 19.4 mmol/l
[2023-10-03 08:43] LABS: allen test SATISFACTORY; o2 40 %; puncture site RADIAL RIGHT
[2023-10-03] MEDS ORDERED: SODIUM CHLORIDE 0.45 % 1,000 ML IV SCH (09:30)
[2023-10-03 11:24] LABS: PLT IN CITRATE 57 K/uL (150-450)
[2023-10-03] MEDS ORDERED: DEXTROSE 50 % IN WATER 0.5 G/ML DISP.SYRIN IV PRN (11:30)
[2023-10-03 12:13] LABS: MANUAL PLATELET COUNT 114
[2023-10-03] MEDS ORDERED: LACTULOSE 20 G/30 ML BLIST.PACK NGT SCH (13:00)
[2023-10-04 07:11] LABS: HEMATOCRIT 26.6 % (39.0-48.0); HEMOGLOBIN 9.2 g/dL (13-16.00); MEAN CELL VOLUME 86.4 fL (80.0-100.00); MEAN CORPUSCULAR HGB CONC 34.7 g/dl (32.0-36.0); RED BLOOD COUNT 3.08 M/uL (4.00-6.00); RED CELL DISTRIBUTION WIDTH 22.1 % (11.5-14.5)
[2023-10-04 07:22] LABS: PLATELET COUNT 49 K/uL (150-450)
[2023-10-04 10:34] LABS: ABG PH 7.363 (7.35-7.45); ABG PO2 117.9 mmHg (80-100); ABG pCO2 29.2 mmHg (35-45); BASE EXCESS -7.6 mmol/l; BICARBONATE 16.2 mmol/l (23-25); SaO2 98.3 %; Tco2 17.1 mmol/l
[2023-10-04 10:35] LABS: allen test SATISFACTORY; o2 100 %; puncture site RADIAL RIGHT
[2023-10-04] MEDS ORDERED: FUROsemide 20 MG/2 ML VIAL IV SCH ×2 (10:45→15:00)
[2023-10-04 11:34] LABS: ob POSITIVE (NEGATIVE)
[2023-10-04 13:01] LABS: BILIRUBIN TOTAL 0.61 mg/dL (0.3-1.2); CALCIUM 7.9 mg/dL (8.5-10.1); CREATININE SERUM 1.72 mg/dL (0.70-1.30); GFR 37.98; GLOBULINA 2.1 G/DL (2.4-3.5); POTASSIUM 4.36 mEq/L (3.5-5.1); TOTAL PROTEIN 4.1 gm/dL (6.4-8.2)
[2023-10-05 09:30] LABS: ABG PH 7.402 (7.35-7.45); ABG pCO2 31.2 mmHg (35-45)
[2023-10-05 09:31] LABS: ABG PO2 131.4 mmHg (80-100); BASE EXCESS -4.6 mmol/l; BICARBONATE 18.9 mmol/l (23-25); SaO2 98.9 %; Tco2 19.9 mmol/l
[2023-10-05 09:32] LABS: allen test SATISFACTORY; o2 40 %; puncture site RADIAL LEFT
[2023-10-05] MEDS ORDERED: AMINO ACIDS/PROTEIN HYDROLYS 30 ML BLIST.PACK NGT SCH (17:00)
[2023-10-06 09:06] LABS: ABG PH 7.377 (7.35-7.45); ABG pCO2 32.2 mmHg (35-45)
[2023-10-06 09:07] LABS: ABG PO2 57.6 mmHg (80-100); BASE EXCESS -5.5 mmol/l; BICARBONATE 18.5 mmol/l (23-25); SaO2 88.3 %; Tco2 19.5 mmol/l; allen test SATISFACTORY; o2 40 %; puncture site RADIAL RIGHT
[2023-10-06 09:31] LABS: HEMATOCRIT 40.4 % (39.0-48.0); HEMOGLOBIN 13.9 g/dL (13-16.00); MEAN CELL VOLUME 86.9 fL (80.0-100.00); MEAN CORPUSCULAR HEMOGLOBIN 29.8 pg (27.00-32.0); MEAN CORPUSCULAR HGB CONC 34.3 g/dl (32.0-36.0); RED BLOOD COUNT 4.65 M/uL (4.00-6.00); RED CELL DISTRIBUTION WIDTH 19.3 % (11.5-14.5)
[2023-10-06 10:18] LABS: PLATELET COUNT 66 K/uL (150-450)
[2023-10-06] MEDS ORDERED: 0.9 % SODIUM CHLORIDE 1,000 ML IV SCH (15:45)
[2023-10-07] MEDS ORDERED: SODIUM CHLORIDE 0.45 % 1,000 ML IV SCH (10:15)
[2023-10-07 10:16] LABS: ABG PH 7.253 (7.35-7.45); ABG PO2 105.2 mmHg (80-100); ABG pCO2 40.8 mmHg (35-45); BASE EXCESS -9.1 mmol/l; BICARBONATE 17.6 mmol/l (23-25); SaO2 96.6 %; Tco2 18.8 mmol/l
[2023-10-07 10:17] LABS: allen test SATISFACTORY; o2 50 %; puncture site RADIAL RIGHT
[2023-10-07 11:18] LABS: URINE APPEARANCE Turbid; URINE BILIRRUBIN Negative (NEGATIVE); URINE BLOOD Large; URINE COLOR Yellow; URINE GLUCOSE Negative (NEGATIVE); URINE LEUKOCYTE Moderate; URINE NITRATE Negative; URINE UROBILINOGEN 0.2 E.U./dl
[2023-10-07 11:22] LABS: URINE EPITHELIAL CELLS 17.1 uL (0.0-38.8); URINE RBC 59.3 uL (0.0-20.8); URINE WBC 2368.3 uL (0.0-23.2)
[2023-10-07 11:36] LABS: URINE PROTEIN 100 (NEGATIVE)
[2023-10-07 12:43] LABS: CALCIUM 7.6 mg/dL (8.5-10.1); CREATININE SERUM 1.74 mg/dL (0.70-1.30); GFR 37.48; POTASSIUM 4.41 mEq/L (3.5-5.1)
[2023-10-07] MEDS ORDERED: PANTOPRAZOLE SODIUM 40 MG TABLET.DR PO SCH (21:00)
[2023-10-08] MEDS ORDERED: LEVOTHYROXINE SODIUM 50 MCG TABLET PO SCH (06:00)
[2023-10-08 07:03] LABS: CALCIUM 7.7 mg/dL (8.5-10.1); CREATININE SERUM 1.75 mg/dL (0.70-1.30); GFR 37.23; POTASSIUM 4.06 mEq/L (3.5-5.1)
[2023-10-08] MEDS ORDERED: CITRIC ACID/SODIUM CITRATE 30 ML BLIST.PACK PO SCH (09:00)
[2023-10-08] MEDS ORDERED: PANTOPRAZOLE SODIUM 40 MG in 0.9 % SODIUM CHLORIDE 100 ML IV SCH (09:00)
[2023-10-08 09:36] LABS: ABG PH 7.381 (7.35-7.45); ABG PO2 83.4 mmHg (80-100); ABG pCO2 26.8 mmHg (35-45); BASE EXCESS -7.8 mmol/l; BICARBONATE 15.5 mmol/l (23-25); SaO2 95.7 %; Tco2 16.3 mmol/l; allen test SATISFACTORY; o2 50 %; puncture site RADIAL LEFT
[2023-10-09 07:04] LABS: CALCIUM 7.7 mg/dL (8.5-10.1); CREATININE SERUM 1.75 mg/dL (0.70-1.30); GFR 37.23; POTASSIUM 3.91 mEq/L (3.5-5.1)
[2023-10-09 10:25] LABS: ABG PH 7.386 (7.35-7.45); ABG pCO2 31.8 mmHg (35-45); SaO2 94.6 %
[2023-10-09 10:26] LABS: BASE EXCESS -5.2 mmol/l; BICARBONATE 18.6 mmol/l (23-25); Tco2 19.6 mmol/l
[2023-10-09 10:27] LABS: HEMATOCRIT 35.5 % (39.0-48.0); HEMOGLOBIN 12.2 g/dL (13-16.00); MEAN CELL VOLUME 86.7 fL (80.0-100.00); MEAN CORPUSCULAR HEMOGLOBIN 29.8 pg (27.00-32.0); MEAN CORPUSCULAR HGB CONC 34.4 g/dl (32.0-36.0); RED BLOOD COUNT 4.09 M/uL (4.00-6.00); RED CELL DISTRIBUTION WIDTH 19.8 % (11.5-14.5)
[2023-10-09 10:27] LABS: allen test SATISFACTORY; o2 21 %; puncture site RADIAL RIGHT
[2023-10-09 10:28] LABS: PLATELET COUNT 32 K/uL (150-450)
[2023-10-09] MEDS ORDERED: FUROsemide 20 MG/2 ML VIAL IV SCH (11:15)
[2023-10-09 13:21] LABS: PROTHROMBIN TIME 12.4 SECONDS (9.0-11.5)
[2023-10-09 13:35] LABS: PARTIAL THROMBOPLASTIN TIME 50.2 SECONDS (22.0-34.0)
[2023-10-09 13:54] LABS: COL EPI 154 SECONDS (82-175)
[2023-10-09] MEDS ORDERED: LANSOPRAZOLE 30 MG CAPSULE NGT SCH (21:00)
[2023-10-10 01:59] LABS: HEMATOCRIT 32.6 % (39.0-48.0); MEAN CELL VOLUME 86.5 fL (80.0-100.00); MEAN CORPUSCULAR HEMOGLOBIN 29.7 pg (27.00-32.0); MEAN CORPUSCULAR HGB CONC 34.4 g/dl (32.0-36.0); RED BLOOD COUNT 3.76 M/uL (4.00-6.00); RED CELL DISTRIBUTION WIDTH 20.2 % (11.5-14.5)
[2023-10-10 02:36] LABS: ALBUMIN 1.7 gm/dL (3.4-5.0); BILIRUBIN TOTAL 0.63 mg/dL (0.3-1.2); CALCIUM 7.7 mg/dL (8.5-10.1); CREATININE SERUM 1.79 mg/dL (0.70-1.30); D DIMER 6.59 MG/L; GFR 36.27; GLOBULINA 2.2 G/DL (2.4-3.5); INR 1.2; POTASSIUM 3.62 mEq/L (3.5-5.1); PROTHROMBIN TIME 12.4 SECONDS (9.0-11.5); TOTAL PROTEIN 3.9 gm/dL (6.4-8.2)
[2023-10-10 02:53] LABS: HEMOGLOBIN 11.2 g/dL (13-16.00)
[2023-10-10 02:55] LABS: PLATELET COUNT 68 K/uL (150-450)
[2023-10-10] MEDS ORDERED: LEVALBUTEROL HCL 0.63 MG/3 ML SOLUTION IH SCH (08:15)
[2023-10-10] MEDS ORDERED: PANTOPRAZOLE SODIUM 80 MG in 0.9 % SODIUM CHLORIDE 100 ML IV SCH (08:30)
[2023-10-10 08:49] LABS: ABG pCO2 30.4 mmHg (35-45)
[2023-10-10 08:51] LABS: ABG PO2 58.2 mmHg (80-100); BICARBONATE 18.4 mmol/l (23-25); SaO2 89.4 %; Tco2 19.4 mmol/l
[2023-10-10 08:52] LABS: allen test SATISFACTORY; o2 50 %; puncture site RADIAL RIGHT
[2023-10-10] MEDS ORDERED: DEXTROSE 5 % IN WATER 1,000 ML IV SCH (10:15)
[2023-10-10] MEDS ORDERED: FUROsemide 20 MG/2 ML VIAL IV PRN (10:15)
[2023-10-10] MEDS ORDERED: HYDROCORTISONE SODIUM SUCC/PF 100 MG VIAL IV STA (10:57)
[2023-10-10] MEDS ORDERED: HYDROCORTISONE SODIUM SUCC/PF 50 MG/ML ML IV SCH (12:00)
[2023-10-10] MEDS ORDERED: VANCOMYCIN HCL 1,000 MG VIAL IV NR (17:00)
[2023-10-10] MEDS ORDERED: AMINO ACIDS 4.25 %/DEXTROSE 5% 1,000 ML PERIFERAL SCH (17:00)
[2023-10-10] MEDS ORDERED: MEROPENEM 500 MG/VIAL VIAL IV SCH (17:00)
[2023-10-10] MEDS ORDERED: FUROsemide 20 MG/2 ML VIAL IV SCH (17:00)
[2023-10-10] MEDS ORDERED: NOREPINEPHRINE BITARTRATE 1 MG/ML AMPUL IV ONE (20:33)
[2023-10-10] MEDS ORDERED: NOREPINEPHRINE BITARTRATE 8 MG in DEXTROSE 5 % IN WATER 250 ML IV SCH (20:45)
[2023-10-11] MEDS ORDERED: PHENYLEPHRINE HCL 20 MG in 0.9 % SODIUM CHLORIDE 250 ML IV SCH (07:30)
[2023-10-11] MEDS ORDERED: DOPamine HCL IN DEXTROSE 5 % 250 ML IV SCH (09:30)
[2023-10-11] MEDS ORDERED: SODIUM BICARBONATE 200 MEQ in DEXTROSE 5 % IN WATER 1,000 ML IV SCH (09:30)
[2023-10-11 09:59] LABS: ABG PH 7.222 (7.35-7.45); ABG PO2 72.5 mmHg (80-100); ABG pCO2 42.8 mmHg (35-45); BASE EXCESS -10.1 mmol/l; BICARBONATE 17.2 mmol/l (23-25); SaO2 89.6 %; Tco2 18.5 mmol/l; allen test SATISFACTORY; o2 80 %; puncture site RADIAL RIGHT
[2023-10-11] MEDS ORDERED: DEXTROSE 5%-WATER 1,000ML IV.SOLN ONE ×3 (11:46→11:47)
[2023-10-11] MEDS ORDERED: SODIUM BICARBONATE 50MEQ/50ML VIAL IV ONE (11:48)
[2023-10-11] MEDS ORDERED: TOBRAMYCIN SULFATE 40 MG/ML VIAL IV SCH (17:00)
[2023-10-12] MEDS ORDERED: LEVOTHYROXINE SODIUM 100 MCG/VIAL VIAL IV SCH (09:00)
== END 2023-10-11 15:05 | disposition expired | DRG 207 ==
LOC: ER 13:43 → MEDJ 21:04 → ICU 09-21 06:11
PROVIDERS: General Practice; Internal Medicine; Internal Medicine Critical Care Medicine; Internal Medicine Hematology & Oncology; Internal Medicine Infectious Disease; Internal Medicine Pulmonary Disease; ADMIT Internal Medicine; ATTEND Internal Medicine
PROC: B246ZZZ Ultrasonography of Right and Left Heart (ICD-10-PCS; 2023-09-16)
PROC: 8E0ZXY6 Isolation (ICD-10-PCS; 2023-09-17)
PROC: 4A12X4Z Monitoring of Cardiac Electrical Activity, External Approach (ICD-10-PCS; 2023-09-17)
PROC: 30233N1 Transfusion of Nonautologous Red Blood Cells into Peripheral Vein, Percutaneous Approach (ICD-10-PCS; 2023-09-17)
PROC: 5A1955Z Respiratory Ventilation, Greater than 96 Consecutive Hours (ICD-10-PCS; principal; 2023-09-20)
PROC: 0BH17EZ Insertion of Endotracheal Airway into Trachea, Via Natural or Artificial Opening (ICD-10-PCS; 2023-09-20)
PROC: XW033E5 Introduction of Remdesivir Anti-infective into Peripheral Vein, Percutaneous Approach, New Technology Group 5 (ICD-10-PCS; 2023-09-20)
PROC: 0DH67UZ Insertion of Feeding Device into Stomach, Via Natural or Artificial Opening (ICD-10-PCS; 2023-09-21)
PROC: 02HV33Z Insertion of Infusion Device into Superior Vena Cava, Percutaneous Approach (ICD-10-PCS; 2023-09-21)
PROC: B020ZZZ Computerized Tomography (CT Scan) of Brain (ICD-10-PCS; 2023-09-22)
PROC: 0T9B70Z Drainage of Bladder with Drainage Device, Via Natural or Artificial Opening (ICD-10-PCS; 2023-09-22)
PROC: B246ZZZ Ultrasonography of Right and Left Heart (ICD-10-PCS; 2023-09-23)
PROC: BW28ZZZ Computerized Tomography (CT Scan) of Head (ICD-10-PCS; 2023-09-25)
PROC: 30233R1 Transfusion of Nonautologous Platelets into Peripheral Vein, Percutaneous Approach (ICD-10-PCS; 2023-10-05)
PROC: 3E0336Z Introduction of Nutritional Substance into Peripheral Vein, Percutaneous Approach (ICD-10-PCS; 2023-10-10)
DX: U07.1 COVID-19 (principal); A41.9 Sepsis, unspecified organism; J12.82 Pneumonia due to coronavirus disease 2019; J15.61 Pneumonia due to Acinetobacter baumannii; J15.8 Pneumonia due to other specified bacteria; I21.A1 Myocardial infarction type 2; J96.01 Acute respiratory failure with hypoxia; I50.23 Acute on chronic systolic (congestive) heart failure; R65.21 Severe sepsis with septic shock; D65 Disseminated intravascular coagulation [defibrination syndrome]; N17.9 Acute kidney failure, unspecified; N39.0 Urinary tract infection, site not specified; C75.0 Malignant neoplasm of parathyroid gland; C66.1 Malignant neoplasm of right ureter; R64 Cachexia; I13.0 Hypertensive heart and chronic kidney disease with heart failure and stage 1 through stage 4 chronic kidney disease, or unspecified chronic kidney disease; G93.49 Other encephalopathy; E87.3 Alkalosis; Q79.60 Ehlers-Danlos syndrome, unspecified; C85.86 Other specified types of non-Hodgkin lymphoma, intrapelvic lymph nodes; D84.89 Other immunodeficiencies; I24.9 Acute ischemic heart disease, unspecified; K92.2 Gastrointestinal hemorrhage, unspecified; E27.49 Other adrenocortical insufficiency; Z68.1 Body mass index [BMI] 19.9 or less, adult; C61 Malignant neoplasm of prostate; C67.9 Malignant neoplasm of bladder, unspecified; E86.0 Dehydration; D64.89 Other specified anemias; R31.0 Gross hematuria; G72.89 Other specified myopathies; R54 Age-related physical debility; D50.0 Iron deficiency anemia secondary to blood loss (chronic); E11.22 Type 2 diabetes mellitus with diabetic chronic kidney disease; N18.9 Chronic kidney disease, unspecified; E03.9 Hypothyroidism, unspecified; G30.9 Alzheimer's disease, unspecified; F02.80 Dementia in other diseases classified elsewhere, unspecified severity, without behavioral disturbance, psychotic disturbance, mood disturbance, and anxiety; B95.2 Enterococcus as the cause of diseases classified elsewhere; Z95.1 Presence of aortocoronary bypass graft; Z92.21 Personal history of antineoplastic chemotherapy; Z74.01 Bed confinement status; Z79.84 Long term (current) use of oral hypoglycemic drugs